=== PATIENT | male | born 1960 | race Caucasian/White ===

== ENCOUNTER 2018-10-22 09:21 | Outpatient (CLI) | payer BC ==
--- NOTE | 2018-10-22 11:12 | MRI ---
MRI RIGHT KNEE WITHOUT CONTRAST: INDICATIONS: Generalized knee pain for three months without known injury. COMPARISON: None. FINDINGS: No joint effusion is evident. No popliteal cyst is noted. The IT band and popliteus appear within normal limits. The MCL, ACL, PCL, and LCLC are intact. There is some mild mucoid degeneration of the ACL. The lateral and medial menisci are intact. There is a 6 mm surface osteophyte involving the medial aspect of the central medial femoral condyle, on image 18 of series 6 and on image 18 of series 7, with some surrounding areas of full-thickness d elamination, measuring approximately 4 mm anteriorly and approximately 3 mm posteriorly. Additional areas of full-thickness articular cartilage thinning are seen involving the lateral femoral trochlea, with full-thickness articular cartilage fissure, measuring approximately 2 mm, on image 16 of series 3. There is a 1 mm articular cartilage fissure involving the lateral patellar facet with associated subchondral edema. There are very small, marginal osteophytes affecting the major compartments of the right knee. IMPRESSION: 1. Mild osteoarthrosis of the right knee, predominantly affecting the patellofemoral and mediofemora l articular joint compartments. 2. The menisci are intact. 3. There is mild mucoid degeneration of the anterior cruciate ligament; however, the anterior crucia te ligament is intact. The medial collateral ligament, posterior cruciate ligament, lateral collater al ligament complex, and extensor mechanism are intact. POS: [facility]
== END 2018-10-22 09:22 | disposition home or self-care (01) ==
LOC: SCSMRI 09:21
PROVIDERS: ATTEND Orthopaedic Surgery
DX: M23.91 Unspecified internal derangement of right knee (principal); M17.11 Unilateral primary osteoarthritis, right knee